=== PATIENT | male | born 1975 | race Caucasian/White ===

== ENCOUNTER 2017-01-02 11:45 | Inpatient (IN) | payer OTHER ==
[2017-01-02 12:48] VITALS: BMI 24.3
--- NOTE | 2017-01-02 13:30 | HP ---
COWS - Scale Resting Pulse: 0= [place] 80 or Below Sweatin=Flushed/Facial Moisture Restless Observation: 1= Difficult to Sit Still Pupil Size: 0= Normal to Room Light Bone or Joint Aches: 2= Severe Diffuse Aches Runny Nose/ Eye Tearin= Runny Nose/Eyes GI Upset > 30mins: 2= Nausea/Diarrhea Tremor Observation: 2= Slight Tremor Visible Yawning Observation: 2= >3x During Session Anxiety or Irritability: 2=Irritable/Anxious Goose Flesh Skin: 3=Piloerection COWS Score: 18 Admission ROS S - HPI Chief Complaint: I am here to detox off the heroin. Allergies/Adverse Reactions: Allergies Allergy/AdvReac Type Severity Reaction Status Date / Time No Known Allergies Allergy Verified 01/02/17 13:00 History of Present Illness: pt is a 41yr old male with a history of heroin dependence seeking detox for treatment. Exam Limitations: No Limitations - Ebola screening Have you traveled outside of the country in the last 21 days: No Have you had contact with anyone from an Ebola affected area: No Have you been sick,other than usual withdrawal symptoms: No Do you have a fever: No - Review of Systems Constitutional: Diaphoresis, Loss of Appetite, Night Sweats, Changes in sleep EENT: reports: Tearing, Nose Congestion, Other (acne to left side of lip.) Respiratory: reports: No Symptoms reported Cardiac: reports: No Symptoms Reported GI: reports: Constipated, Poor Fluid Intake, Indigestion : reports: No Symptoms Reported Musculoskeletal: reports: No Symptoms Reported, Back Pain, Joint Pain Integumentary: reports: Flushing, Rash (acne at side of lip.), Sweating Neuro: reports: Tingling, Tremors Endocrine: reports: Excessive Sweating, Flushing, Intolerance to Cold, Intolerance to Heat Hematology: reports: No Symptoms Reported Psychiatric: reports: Judgement Intact, Orientated x3, Agitated, Anxious Other Systems: Reviewed and Negative Patient History - Patient Medical History Hx Anemia: No Hx Asthma: No Hx Chronic Obstructive Pulmonary Disease (COPD): No Hx Cancer: No Hx Cardiac Disorders: No Hx Congestive Heart Failure: No Hx Hypertension: No Hx Hypercholesterolemia: No Hx Pacemaker: No HX Cerebrovascular Accident: No Hx Seizures: No Hx Dementia: No Hx Diabetes: No Hx Gastrointestinal Disorders: No Hx Liver Disease: No Hx Genitourinary Disorders: No Hx Sexually Transmitted Disorders: No Hx Renal Disease (ESRD): No Hx Thyroid Disease: No Hx Human Immunodeficiency Virus (HIV): No (negative) Hx Hepatitis C: No (negative) Hx Depression: Yes Hx Suicide Attempt: No (denies) Hx Bipolar Disorder: No Hx Schizophrenia: No - Patient Surgical History Past Surgical History: Yes Other Surgical History: L inguinal hernia repair at age 17 yrs old. - PPD History Previous Implant?: No Documented Results: Negative w/proof Implanted On Prior R Admission?: No PPD to be Administered?: Yes - Reproductive History Patient is a Female of Child Bearing Age (11 -55 yrs old): No - Smoking Cessation Smoking history: Current every day smoker Have you smoked in the past 12 months: Yes Aproximately how many cigarettes per day: 10 Hx Chewing Tobacco Use: No Initiated information on smoking cessation: Yes 'Breaking Loose' booklet given: 01/02/17 - Substance & Tx. History Hx Alcohol Use: No Hx Substance Use: Yes Substance Use Type: Heroin Hx Substance Use Treatment: Yes - Substances Abused Heroin Route: Injection Frequency: Daily Amount used: 10 bags Age of first use: 29 Date of Last Use: 01/01/17 Cocaine Route: Smoking Frequency: Daily Amount used: 5 bags Age of first use: 29 Date of Last Use: 01/01/17 Family Disease History - Family Disease History Family History: Denies Admission Physical Exam BHS - Vital Signs Vital Signs: Vital Signs - 24 hr 01/02/17 12:44 Temperature 97.2 F L Pulse Rate 68 Respiratory 20 Rate Blood Pressure 115/70 - Physical General Appearance: Yes: Appropriately Dressed, Moderate Distress, Thin, Tremorous, Irritable, Sweating, Anxious HEENTM: Yes: Normal Voice, Nasal Congestion, Rhinorrhea Respiratory: Yes: Lungs Clear, Normal Breath Sounds, No Respiratory Distress Neck: Yes: No masses,lesions,Nodules Breast: Yes: Within Normal Limits Cardiology: Yes: Regular Rhythm, Regular Rate, S1, S2 Abdominal: Yes: Normal Bowel Sounds, Non Tender, Soft Genitourinary: Yes: Within Normal Limits Back: Yes: Normal Inspection Musculoskeletal: Yes: Gait Steady, Back pain Extremities: Yes: Normal Capillary Refill, Normal Inspection, Non-Tender, Tremors Neurological: Yes: Fully Oriented, Alert, Normal Response Integumentary: Yes: Normal Color, Diaphoresis - Diagnostic (1) Opioid dependence with withdrawal Current Visit: Yes Status: Chronic (2) Nicotine dependence Current Visit: Yes Status: Chronic Qualifiers: Nicotine product type: cigarettes Substance use status: uncomplicated Qualified Code(s): F17.210 - Nicotine dependence, cigarettes, uncomplicated Cleared for Admission BHS - Detox or Rehab Detox Regimen/Protocol: Methadone BHS Breath Alcohol Content Breath Alcohol Content: 0 Urine Drug Screen - Results Drug Screen Negative: No Urine Drug Screen Results: DAVID-Cocaine, OPI-Opiates, MTD-Methadone, OXY- Oxycodone
[2017-01-02] MEDS ORDERED: NICOTINE POLACRILEX 4 MG GUM BC PRN (13:34)
[2017-01-02] MEDS ORDERED: MAGNESIUM CITRATE 300 ML BOTTLE PO PRN (13:34)
[2017-01-02] MEDS ORDERED: LOPERAMIDE HCL 2 MG CAPSULE PO PRN (13:34)
[2017-01-02] MEDS ORDERED: MAGNESIUM HYDROX 2400MG/30ML ORAL SUSPENSION 30 ML CUP PO PRN (13:34)
[2017-01-02] MEDS ORDERED: IBUPROFEN 400 MG TABLET (FP) PO PRN (13:34)
[2017-01-02] MEDS ORDERED: diazePAM 5 MG TABLET PO PRN (13:34)
[2017-01-02] MEDS ORDERED: hydrOXYzine PAMOATE 50 MG CAPSULE (FP) PO PRN (13:34)
[2017-01-02] MEDS ORDERED: MENTHOL/PHENOL 1 EACH UD MM PRN (13:34)
[2017-01-02] MEDS ORDERED: ACETAMINOPHEN 325 MG TABLET (FP) PO PRN (13:34)
[2017-01-02] MEDS ORDERED: MAG HYDROX/AL HYDROX/SIMETH 30 ML UNIT-DOSE CUP PO PRN (13:34)
[2017-01-02] MEDS ORDERED: guaiFENesin/D-METHORPHAN HB 10 ML UNIT-DOSE CUPS PO PRN (13:34)
[2017-01-02] MEDS ORDERED: P-EPHED 60MG/TRIPROLIDI 2.5MG TABLET PO PRN (13:34)
[2017-01-02] MEDS ORDERED: diphenhydrAMINE HCL 50 MG CAPSULE PO PRN (13:34)
[2017-01-02] MEDS ORDERED: METHADONE HCL 10 MG TABLET (FOR DETOX USE ONLY) PO ONE ×2 (16:00→23:00)
[2017-01-02] MEDS: VITAMINS A AND D TOPICAL OINTMENT 60 GM TUBE TP SCH ×2 (18:15→23:22)
[2017-01-02 21:34] LABS: URINE APPEARANCE CLEAR; URINE BILIRUBIN NEGATIVE (NEGATIVE); URINE BLOOD NEGATIVE (NEGATIVE); URINE COLOR YELLOW; URINE GLUCOSE (UA) NEGATIVE (NEGATIVE); URINE KETONE NEGATIVE (NEGATIVE); URINE LEUK ESTERASE NEGATIVE (NEGATIVE); URINE NITRITE NEGATIVE (NEGATIVE); URINE PROTEIN NEGATIVE (NEGATIVE)
[2017-01-02] MEDS: THIAMINE HCL 100 MG TABLET (FP) PO SCH (23:22)
[2017-01-03] MEDS: VITAMINS A AND D TOPICAL OINTMENT 60 GM TUBE TP SCH ×4 (06:13→23:28)
[2017-01-03] MEDS ORDERED: METHADONE HCL 10 MG TABLET (FOR DETOX USE ONLY) PO ONE (10:00)
[2017-01-03 10:23] LABS: MCH 32.6 pg (25.7-33.7); MEAN CELL VOLUME 98.7 fl (80-96); MEAN PLT VOLUME 9.5 fl (7.5-11.1); PLATELET COUNT 225 K/MM3 (134-434); RDW 13.5 % (11.9-15.9); WHITE BLOOD COUNT 7.6 K/mm3 (4.0-10.0)
[2017-01-03 10:47] LABS: ALBUMIN 3.6 g/dl (3.4-5.0); ANION GAP 8 (8-16); CALCIUM 9.2 mg/dL (8.5-10.1); CO2 32 mmol/L (21-32); GLUCOSE,RANDOM 93 mg/dL (74-106)
[2017-01-03 10:51] LABS: ALK PHOS 90 U/L (45-117); BILIRUBIN,TOTAL 0.3 mg/dL (0.2-1.0); SGOT/AST 15 U/L (15-37); SGPT/ALT 26 U/L (12-78); TOT PROT 6.8 g/dl (6.4-8.2)
[2017-01-03] MEDS: NICOTINE 21 MG/24 HOURS TOPICAL PATCH TD SCH (11:21)
[2017-01-03] MEDS: PRENATAL VITAMINS W/ FOLIC ACID TABLET (FP) PO SCH (11:23)
--- NOTE | 2017-01-03 11:43 | PN ---
BHS COWS - Scale Resting Pulse: 0= [place] 80 or Below Sweatin= Chills/Flushing Restless Observation: 1= Difficult to Sit Still Pupil Size: 1= Pupils >than Normal Bone or Joint Aches: 1= Mild Discomfort Runny Nose/ Eye Tearin= Nasal Congestion GI Upset > 30mins: 2= Nausea/Diarrhea Tremor Observation of Outstretched Hands: 1= Tremor [place], Not Seen Yawning Observation: 1= 1-2x During Session Anxiety or Irritability: 2=Irritable/Anxious Goose Flesh Skin: 3=Piloerection COWS Score: 14 BHS Progress Note (SOAP) Subjective: nausea, sweats, interrupted sleep, anxiety, tremors Objective: 01/03/17 11:42 Vital Signs - 24 hr 01/02/17 01/02/17 01/02/17 12:44 18:29 21:18 Temperature 97.2 F L 98.2 F 98.6 F Pulse Rate 68 66 72 Respiratory 20 18 18 Rate Blood Pressure 115/70 114/62 107/59 01/03/17 01/03/17 01/03/17 00:30 03:30 06:00 Temperature 98.2 F Pulse Rate 54 L Respiratory 18 18 18 Rate Blood Pressure 105/57 01/03/17 11:00 Temperature 98.4 F Pulse Rate 57 L Respiratory 18 Rate Blood Pressure 105/66 Laboratory Tests 01/02/17 01/03/17 01/03/17 21:20 06:00 06:00 WBC 7.6 RBC 4.26 Hgb 13.9 Hct 42.1 MCV 98.7 H MCH 32.6 MCHC 33.0 RDW 13.5 Plt Count 225 MPV 9.5 Sodium 144 Potassium 4.4 Chloride 104 Carbon Dioxide 32 Anion Gap 8 BUN 15 Creatinine 1.0 Creat Clearance w eGFR > 60 Random Glucose 93 Calcium 9.2 Total Bilirubin 0.3 AST 15 ALT 26 Alkaline Phosphatase 90 Total Protein 6.8 Albumin 3.6 Urine Color Yellow Urine Appearance Clear Urine pH 6.0 Ur Specific [place] 1.025 Urine Protein Negative Urine Glucose (UA) Negative Urine Ketones Negative Urine Blood Negative Urine Nitrite Negative Urine Bilirubin Negative Urine Urobilinogen 1.0 Ur Leukocyte Esterase Negative Assessment: 01/03/17 11:43 withdrawal sx Plan: cont detox, fluids
[2017-01-03] MEDS: NAPROXEN 500 MG TABLET (FP) PO SCH ×2 (12:08→23:28)
--- NOTE | 2017-01-03 12:59 | EKG ---
Test Reason : Blood Pressure : / mmHG Vent. Rate : 055 BPM Atrial Rate : 055 BPM P-R Int : 154 ms QRS Dur : 094 ms QT Int : 474 ms P-R-T Axes : 048 057 045 degrees QTc Int : 453 ms SINUS BRADYCARDIA WITH SINUS ARRHYTHMIA OTHERWISE NORMAL ECG NO PREVIOUS ECGS AVAILABLE Confirmed by JESSICA SANTO MD ([id number]) on 01/03/2017 12:59:30 PM Referred By: Confirmed By:JESSICA SANTO MD
--- NOTE | 2017-01-03 14:12 | CONSULT ---
[facility] Psychiatric Consult - Data Date of interview: 01/03/17 Admission source: [facility] Identifying data: Patient refused psychiatric interview.DARNELL Vera is made aware.
[2017-01-03] MEDS: CYCLOBENZAPRINE HCL 10 MG TABLET (FP) PO SCH ×2 (15:08→23:28)
[2017-01-03] MEDS: THIAMINE HCL 100 MG TABLET (FP) PO SCH (23:28)
[2017-01-03] MEDS: cloNIDine HCL 0.1 MG TABLET PO SCH (23:28)
[2017-01-04] MEDS: CYCLOBENZAPRINE HCL 10 MG TABLET (FP) PO SCH (06:13)
[2017-01-04] MEDS: VITAMINS A AND D TOPICAL OINTMENT 60 GM TUBE TP SCH (06:52)
[2017-01-04] MEDS ORDERED: METHADONE HCL 5 MG TABLET (FOR DETOX USE ONLY) PO ONE (10:00)
[2017-01-04] MEDS ORDERED: PANTOPRAZOLE 40 MG TABLET (FP) PO SCH (10:00)
--- NOTE | 2017-01-04 10:28 | PN ---
S COWS - Scale Resting Pulse: 0= [place] 80 or Below Sweatin= Chills/Flushing Restless Observation: 1= Difficult to Sit Still Pupil Size: 1= Pupils >than Normal Bone or Joint Aches: 1= Mild Discomfort Runny Nose/ Eye Tearin= Nasal Congestion GI Upset > 30mins: 2= Nausea/Diarrhea Tremor Observation of Outstretched Hands: 1= Tremor [place], Not Seen Yawning Observation: 1= 1-2x During Session Anxiety or Irritability: 2=Irritable/Anxious Goose Flesh Skin: 3=Piloerection COWS Score: 14 S Progress Note (SOAP) Subjective: nausea, sweats, interrupted sleep, anxiety, tremors Objective: 01/04/17 10:28 Vital Signs - 24 hr 01/03/17 01/03/17 01/03/17 11:00 18:23 23:20 Temperature 98.4 F 98.1 F 98.2 F Pulse Rate 57 L 42 L 75 Respiratory 18 18 18 Rate Blood Pressure 105/66 104/60 99/67 01/04/17 01/04/17 01/04/17 00:30 03:30 06:23 Temperature 96.4 F L Pulse Rate 50 L Respiratory 18 18 16 Rate Blood Pressure 101/60 Laboratory Tests 01/02/17 01/03/17 01/03/17 21:20 06:00 06:00 WBC 7.6 RBC 4.26 Hgb 13.9 Hct 42.1 MCV 98.7 H MCH 32.6 MCHC 33.0 RDW 13.5 Plt Count 225 MPV 9.5 Sodium 144 Potassium 4.4 Chloride 104 Carbon Dioxide 32 Anion Gap 8 BUN 15 Creatinine 1.0 Creat Clearance w eGFR > 60 Random Glucose 93 Calcium 9.2 Total Bilirubin 0.3 AST 15 ALT 26 Alkaline Phosphatase 90 Total Protein 6.8 Albumin 3.6 Urine Color Yellow Urine Appearance Clear Urine pH 6.0 Ur Specific [place] 1.025 Urine Protein Negative Urine Glucose (UA) Negative Urine Ketones Negative Urine Blood Negative Urine Nitrite Negative Urine Bilirubin Negative Urine Urobilinogen 1.0 Ur Leukocyte Esterase Negative RPR Titer 01/03/17 06:00 WBC RBC Hgb Hct MCV MCH MCHC RDW Plt Count MPV Sodium Potassium Chloride Carbon Dioxide Anion Gap BUN Creatinine Creat Clearance w eGFR Random Glucose Calcium Total Bilirubin AST ALT Alkaline Phosphatase Total Protein Albumin Urine Color Urine Appearance Urine pH Ur Specific [place] Urine Protein Urine Glucose (UA) Urine Ketones Urine Blood Urine Nitrite Urine Bilirubin Urine Urobilinogen Ur Leukocyte Esterase RPR Titer Nonreactive Assessment: 01/04/17 10:28 isidro sx Plan: cont detox
[2017-01-04 10:40] VITALS: BP 131/66; PULSE 82; TEMP 98.4
--- NOTE | 2017-01-04 11:11 | PN ---
[facility] Progress Note Note: Patient refusing to stay for completion of detox because of withdrmega sx, states he has to see his parole office r, risks and benefits of not completing dietoxification as ordered discussed with patient will sign out AMA. Nursing notified.
--- NOTE | 2017-01-04 11:12 | DS ---
[facility] Detox Discharge Summary Admission Date: 01/02/17 Discharge Date: 01/04/17 - History Present History: Opioid Dependence Pertinent Past History: nicotine dependence, anxiety, insomnia, depression - Physical Exam Results Vital Signs: Vital Signs Temperature 98.4 F 01/04/17 10:39 Pulse Rate 82 01/04/17 10:39 Respiratory Rate 18 01/04/17 10:39 Blood Pressure 131/66 01/04/17 10:39 O2 Sat by Pulse Oximetry (%) Laboratory Tests 01/02/17 01/03/17 01/03/17 21:20 06:00 06:00 WBC 7.6 RBC 4.26 Hgb 13.9 Hct 42.1 MCV 98.7 H MCH 32.6 MCHC 33.0 RDW 13.5 Plt Count 225 MPV 9.5 Sodium 144 Potassium 4.4 Chloride 104 Carbon Dioxide 32 Anion Gap 8 BUN 15 Creatinine 1.0 Creat Clearance w eGFR > 60 Random Glucose 93 Calcium 9.2 Total Bilirubin 0.3 AST 15 ALT 26 Alkaline Phosphatase 90 Total Protein 6.8 Albumin 3.6 Urine Color Yellow Urine Appearance Clear Urine pH 6.0 Ur Specific [place] 1.025 Urine Protein Negative Urine Glucose (UA) Negative Urine Ketones Negative Urine Blood Negative Urine Nitrite Negative Urine Bilirubin Negative Urine Urobilinogen 1.0 Ur Leukocyte Esterase Negative RPR Titer 01/03/17 06:00 WBC RBC Hgb Hct MCV MCH MCHC RDW Plt Count MPV Sodium Potassium Chloride Carbon Dioxide Anion Gap BUN Creatinine Creat Clearance w eGFR Random Glucose Calcium Total Bilirubin AST ALT Alkaline Phosphatase Total Protein Albumin Urine Color Urine Appearance Urine pH Ur Specific [place] Urine Protein Urine Glucose (UA) Urine Ketones Urine Blood Urine Nitrite Urine Bilirubin Urine Urobilinogen Ur Leukocyte Esterase RPR Titer Nonreactive Pertinent Admission Physical Exam Findings: withdrawal sx - Treatment Hospital Course: Detox Protocol Followed Patient has Accepted a Rehab Referral to: No - Medication Discharge Medications: Ambulatory Orders NK [No Known Home Medication] 01/02/17 - Diagnosis (1) Nicotine dependence Current Visit: Yes Status: Chronic Qualifiers: Nicotine product type: cigarettes Substance use status: uncomplicated Qualified Code(s): F17.210 - Nicotine dependence, cigarettes, uncomplicated (2) Opioid dependence with withdrawal Current Visit: Yes Status: Chronic - AMA Did Patient Leave Against Medical Advice: Yes
[2017-01-04] MEDS: cloNIDine HCL 0.1 MG TABLET PO SCH (11:26)
[2017-01-04] MEDS: NAPROXEN 500 MG TABLET (FP) PO SCH (11:26)
[2017-01-04] MEDS: PRENATAL VITAMINS W/ FOLIC ACID TABLET (FP) PO SCH (11:27)
[2017-01-04] MEDS: NICOTINE 21 MG/24 HOURS TOPICAL PATCH TD SCH (11:27)
[2017-01-05] MEDS ORDERED: METHADONE HCL 5 MG TABLET (FOR DETOX USE ONLY) PO ONE (10:00)
[2017-01-06] MEDS ORDERED: METHADONE HCL 10 MG TABLET (FOR DETOX USE ONLY) PO ONE (10:00)
[2017-01-07] MEDS ORDERED: METHADONE HCL 5 MG TABLET (FOR DETOX USE ONLY) PO ONE (06:00)
== END 2017-01-04 11:31 | disposition left against medical advice (07) | DRG 770 ==
LOC: YASAS 11:45 → Y6N 15:29
PROVIDERS: ADMIT Internal Medicine Addiction Medicine; ATTEND Internal Medicine Addiction Medicine
PROC: HZ2ZZZZ Detoxification Services for Substance Abuse Treatment (ICD-10-PCS; principal; 2017-01-02)
DX: F11.23 Opioid dependence with withdrawal (principal); F14.20 Cocaine dependence, uncomplicated; F17.210 Nicotine dependence, cigarettes, uncomplicated
CPT/HCPCS: 36415; 80053; 81003; 85027; 86593; 93005; 93010